=== PATIENT | female | born 1955 | race Caucasian/White ===

== ENCOUNTER 2020-07-21 12:02 | Day surgery (SDC) | payer BC ==
[2020-07-18 18:13] VITALS: BMI 25.8
[~2020-07-21 12:02] MED LIST: LACTATED RINGERS 1,000 ML IV SCH
[2020-07-21 13:13] VITALS: TEMP 98.6
[2020-07-21] MEDS ORDERED: LIDOCAINE 1% (10MG/ML) FOR IV START INTRADERMA ONE (13:15)
[2020-07-21] MEDS ORDERED: PROPOFOL 10 MG/ML 20 ML VIAL IV ONE (13:20)
--- NOTE | 2020-07-21 13:39 | P.PCN ---
Date of Procedure: 07/21/20 Procedure(s) Performed: BRIEF HISTORY: Patient is a 64-year-old pleasant white female scheduled for an elective colonoscopy as a part of evaluation intermittent rectal bleeding for the last few months duration. PROCEDURE PERFORMED: Colonoscopy. PREOPERATIVE DIAGNOSIS: Intermittent rectal bleeding. IV sedation per Anesthesia. PROCEDURE: After informed consent was obtained, the patient, was brought into the endoscopy unit. IV sedation was administered by Anesthesia under continuous monitoring. Digital rectal examination was normal. Initially the Olympus CF-160 flexible video colonoscope was then inserted in the rectum, gradually advanced into the cecum without any difficulty. Careful examination was performed as the scope was gradually being withdrawn. Ileocecal valve and the appendiceal orifice were visualized and appeared normal. Prep was excellent. Mucosa of the cecum, ascending colon, transverse colon, descending colon, sigmoid colon, and rectum appeared normal. Retroflexion was performed in the rectum and all internal hemorrhoids were seen. The patient tolerated the procedure well. IMPRESSION: Normal-appearing colon from rectum to cecum with no evidence of colorectal neoplasia. Small internal hemorrhoids RECOMMENDATIONS: Findings of this examination were discussed with the patient as well as her family. She was advised to have a repeat screening colonoscopy in 10 years..
[2020-07-21 14:04] VITALS: BP 110/70; PULSE 78; RESP 18
== END 2020-07-21 14:16 | disposition home or self-care (01) ==
LOC: ORWHC2ENDO 12:02
PROVIDERS: ATTEND Internal Medicine Gastroenterology
DX: K64.8 Other hemorrhoids (principal); K62.5 Hemorrhage of anus and rectum; Z79.890 Hormone replacement therapy; Z79.899 Other long term (current) drug therapy; I10 Essential (primary) hypertension; E07.9 Disorder of thyroid, unspecified; Z88.0 Allergy status to penicillin; Z88.2 Allergy status to sulfonamides
CPT/HCPCS: 45378; J2704

== ENCOUNTER → 2024-01-09 | Day surgery (SDC) | payer MEDICARE ==
[2024-01-07 15:38] VITALS: BMI 23.8
[~2024-01-09] MED LIST changes: -LACTATED RINGERS 1,000 ML IV SCH; +LIDOCAINE 2% (PF) 20 MG/ML 5 ML VIAL ONE; +PROPOFOL 10 MG/ML 20 ML VIAL IV ONE
[2024-01-09] MEDS: IV FLUID CONTINUATION 1,000 ML IV ONE (10:08)
[2024-01-09 10:10] VITALS: TEMP 97.3
[2024-01-09] MEDS: LACTATED RINGERS 1,000 ML IV SCH (10:16)
--- NOTE | 2024-01-09 11:03 | P.PCN ---
Date of Procedure: 01/09/24 Procedure(s) Performed: Brief history: Patient is a pleasant 68-year-old white female scheduled for an elective upper endoscopy as well as colonoscopy as a part of evaluation of severe symptomatic anemia with a hemoglobin of 5.5 g/dL and was admitted to [facility] for blood transfusion.. Procedure performed: Esophagogastroduodenoscopy with biopsy Colonoscopy Preoperative diagnosis: Symptomatic anemia with hemoglobin of 5.5 g/dL Anesthesia: MAC Procedure: After informed consent was obtained from the patient was brought into the endoscopy unit and IV sedation was administered by anesthesia under continuous monitoring. Initially upper endoscopy was done. The Olympus GF 160 video endoscope was inserted inserted into the mouth and esophagus intubated without any difficulty and was gradually advanced into the stomach and duodenum and carefully examined. The bulb and second part of the duodenum appeared normal. Biopsies were done from the duodenum to rule out celiac disease. The scope was then withdrawn into the stomach adequately insufflated with air and upon careful examination the antrum had mild gastritis and biopsies were done from this area. Mucosa body, cardia and fundus appeared normal. The scope was then withdrawn into the esophagus. The GE junction was located at 40 cm to the incisors. It appeared regular with no erythema erosions or ulcerations. Rest of the esophagus appeared normal. Patient tolerated the procedure well. At this time the patient continued to remain sedation. Initial digital rectal examination was normal. Olympus CF 160 video colonoscope was then inserted into the rectum and gradually advanced to the cecum without any difficulty. Careful examination was performed as the scope was gradually being withdrawn. The prep was excellent. The cecum, ascending colon, transverse colon, descending colon, sigmoid colon and rectum appeared normal. Retroflexion was performed in the rectum and small internal hemorrhoids s were noted. Patient tolerated the procedure well. Impression: 1. Upper endoscopy revealed mild antral gastritis but no evidence of esophagitis or peptic ulcer disease. 2 Colonoscopy was.Within normal limits with no evidence of colorectal neoplasia except for small internal hemorrhoids Recommendations: Findings of this examination were discussed with the patient as well as her family. She was advised to follow with the biopsy results. Recommended repeat screening colonoscopy in 10 years.
[2024-01-09 11:17] VITALS: RESP 16
[2024-01-09 11:28] VITALS: BP 127/69; PULSE 57
== END ==
LOC: ORWHC2ENDO 09:46
PROVIDERS: ATTEND Internal Medicine Gastroenterology
DX: K29.50 Unspecified chronic gastritis without bleeding (principal); D64.9 Anemia, unspecified; K64.8 Other hemorrhoids; I10 Essential (primary) hypertension; I48.91 Unspecified atrial fibrillation; E03.9 Hypothyroidism, unspecified; Z79.890 Hormone replacement therapy; Z79.899 Other long term (current) drug therapy; Z90.49 Acquired absence of other specified parts of digestive tract; Z88.0 Allergy status to penicillin; Z88.2 Allergy status to sulfonamides
CPT/HCPCS: 88305; 45378; 43239; J2704; J2003